=== PATIENT | female | born 1995 | race Caucasian/White ===

== ENCOUNTER 2016-09-04 22:24 | Emergency (ER) | payer SELFPAY ==
[~2016-09-04] VITALS: Ht 167.6 cm; Wt 72.1 kg
[~2016-09-04 22:24] MED LIST: KEFLEX500 MG PO; MOTRIN600 MG PO; ZANTAC300 MG PO; ZOFRAN ODT4 MG PO
[2016-09-04] MEDS ORDERED: ZITHROMAX Z-PA250 MG PO (23:51)
[2016-09-04] MEDS ORDERED: VENTOLIN HFA18 GM IH (23:51)
[2016-09-04] MEDS ORDERED: MEDROL DOSEPAK4 MG PO (23:51)
[2016-09-05 00:10] VITALS: BP 128/77
== END 2016-09-05 00:11 | disposition home or self-care (01) ==
LOC: EME 22:24 → RME 22:24
DX: J20.9 Acute bronchitis, unspecified (principal); F17.200 Nicotine dependence, unspecified, uncomplicated
CPT/HCPCS: 94664; 99281; 99284

== ENCOUNTER 2016-09-25 14:51 | Emergency (ER) | payer SELFPAY ==
[~2016-09-25] VITALS: Ht 167.6 cm; Wt 70.4 kg
[~2016-09-25 14:51] MED LIST changes: +MEDROL DOSEPAK4 MG PO; +VENTOLIN HFA18 GM IH; +ZITHROMAX Z-PA250 MG PO
[2016-09-25] MEDS ORDERED: TYLENOL EXTRA500 MG PO (15:22)
[2016-09-25 15:49] LABS: HEMATOCRIT 39.2 % (36.0-46.0); MCH 30.9 PG (29.0-34.0); MCHC 33.9 G/DL (30.0-36.0); MCV 91.2 FL (83-99); MEAN PLAT.VOLUME 10.1 uM^3 (9.5-12.4); PLATELET COUNT 324 K/uL (156-360); RBC DIS.WIDTH-CV 12.3 % (11.8-14.6); RBC DIS.WIDTH-SD 40.4 % (39-53)
[2016-09-25 15:59] LABS: CHLORIDE 107 mEq/L (99-109); SODIUM 142 mEq/L (136-147)
[2016-09-25 16:01] LABS: GLUCOSE 94 mg/dL (70-99)
[2016-09-25 16:02] LABS: ANION GAP 9 MEQ/L (2-14)
[2016-09-25 16:04] LABS: GFR ESTIMATE (CALCULATED) > 59 mL/min/
[2016-09-25 16:05] LABS: UREA NITROGEN (BUN) 10 mg/dL (9-23)
[2016-09-25 16:09] LABS: TROP-I INTERPRETATION NEGATIVE; TROPONIN-I < 0.01 ng/mL (0.0-0.30)
[2016-09-25 16:13] LABS: QUANTITATIVE HCG < 4.0 MIU/ML
[2016-09-25 17:02] LABS: ADD MIUA? YES; BILIRUBIN NEGATIVE; BLOOD NEGATIVE; COLOR YELLOW ((YELLOW)); GLUCOSE (STRIP) NEGATIVE; KETONES NEGATIVE; LEUKOCYTES SMALL; NITRITE NEGATIVE; PH, URINE 7.5 (5-8); PROTEIN (STRIP) NEGATIVE; SPECIFIC GRAVITY 1.013 (1.000-1.030); UROBILINOGEN 0.2 MG/DL (0.2-1.0)
[2016-09-25 17:13] LABS: BACTERIA 1+ /HPF; CASTS NONE SEEN /LPF; CRYSTALS NONE SEEN; EPITHELIAL CELLS 1+ /HPF; MUCUS NONE SEEN /LPF; PATHOLOGICAL CAST NONE SEEN; RED BLOOD CELLS 0-5 /HPF (0-5); SMALL ROUND CELL NONE SEEN; WHITE BLOOD CELLS 0-5 /HPF (0-5); YEAST-LIKE CELL NONE SEEN
[2016-09-25] MEDS ORDERED: ANTIVERT25 MG PO (17:28)
[2016-09-25] MEDS ORDERED: NAPROSYN500 MG PO (17:28)
[2016-09-25 17:46] VITALS: BP 123/65
== END 2016-09-25 17:47 | disposition home or self-care (01) ==
LOC: EME 14:51
PROVIDERS: Nurse Practitioner Family
DX: R51 Headache (principal); R42 Dizziness and giddiness; R07.89 Other chest pain; Z87.891 Personal history of nicotine dependence
CPT/HCPCS: 80048; 81003; 84484; 84702; 85027; 93005; 99281; 99284